=== PATIENT | male | born 1965 | race Caucasian/White ===

== ENCOUNTER 2020-08-19 19:49 | Emergency (ER) | payer BC ==
[~2020-08-19] VITALS: Ht 172.7 cm; Wt 73.6 kg
[2020-08-19 19:57] VITALS: TEMP 97.2
[2020-08-19] MEDS ORDERED: DESYREL 50MG50 MG PO (20:01)
[2020-08-19 21:04] LABS: BASO % 0.3 % (0.0-2.0); EOS # 0.1 (0.0-0.7); EOS % 1.9 % (0-4.0); GRAN # 5.5 (1.4-6.5); GRAN % 74.5 % (42.2-75.2); HEMATOCRIT 42.5 % (42.0-52.0); HEMOGLOBIN 14.6 g/dl (13.5-18.0); LYMPH # 1.1 (1.2-3.4); LYMPH % 14.5 % (20.0-51.0); MEAN CELL VOLUME 86 fl (80.0-100.0); MEAN CORPUSCULAR HEMOGLOBIN 30 pg (27.0-31.0); MEAN CORPUSCULAR HGB CONC 34 g/dl (33.0-37.0); MEAN PLATELET VOLUME 10.9 fl (7.4-10.4); MONO # 0.6 (0.1-0.6); MONO % 8.5 % (1.7-9.3); PLATELET COUNT 205 K/mm3 (130-400); RED BLOOD COUNT 4.93 M/mm3 (4.20-5.60); REDCELL DISTRIBUTION WIDTH-CV 12.1 % (11.5-14.5)
[2020-08-19 21:08] LABS: BILIRUBIN,TOTAL 0.6 mg/dL (0.0-1.0); CALCIUM 8.9 mg/dL (8.4-10.2); CREATININE, serum 1.2 (0.66-1.25); POTASSIUM 3.9 mmol/L (3.4-5.0); TOTAL PROTEIN 7.5 gm/dL (6.4-8.2)
[2020-08-19 22:36] LABS: COLLECTION METHOD CLEAN CATCH
[2020-08-19 22:41] LABS: MUCOUS Present /lpf; PH 5 (5-8); SQUAMOUS EPITHELIAL 0-2 /hpf; URINE APPEARANCE Clear; URINE BACTERIA None Seen /hpf; URINE BILIRUBIN Negative (NEGATIVE); URINE BLOOD 1+ (NEGATIVE); URINE COLOR Yellow; URINE GLUCOSE Negative (NEGATIVE); URINE KETONE 2+ (NEGATIVE); URINE LEUKOCYTE ESTERASE Negative (NEGATIVE); URINE NITRATE Negative (NEGATIVE); URINE PROTEIN(semi-quant) Negative (NEGATIVE); URINE RBC 0-2 /hpf; URINE UROBILINOGEN Negative (NEGATIVE)
[2020-08-20] MEDS ORDERED: PERCOCET 325 MG1 TA2 PO (00:06)
[2020-08-20] MEDS ORDERED: FLOMAX 0.40.4 MG/CAP PO (00:06)
[2020-08-20 00:15] VITALS: BP 132/76; PULSE 80
== END 2020-08-20 00:15 | disposition home or self-care (01) ==
LOC: COL.ER 19:49
PROVIDERS: Physician Assistant
DX: N20.0 Calculus of kidney (principal)
CPT/HCPCS: J1170; J2405; Q9967

== ENCOUNTER → 2021-04-13 | Outpatient (CLI) | payer OTHER ==
[~2021-04-13] MED LIST: DESYREL 50MG50 MG PO; FLOMAX 0.40.4 MG/CAP PO; PERCOCET 325 MG1 TA2 PO
== END ==
LOC: ZCOL.LAB 17:05
DX: Z20.822 Contact with and (suspected) exposure to COVID-19 (principal)